=== PATIENT | male | born 1985 | race Caucasian/White ===

== ENCOUNTER → 2022-08-03 | Outpatient (CLI) | payer OTHER ==
[2022-08-03 18:43] LABS: Hematocrit 44.4 % (37.0-53.0); Hemoglobin 15.7 g/dL (13.5-17.5); Mean Corpuscular HGB 28.8 pg (26.0-34.0); Mean Corpuscular HGB Conc 35.4 g/dL (31.5-36.5); Mean Corpuscular Volume 82 fL (80-100); Mean Platelet Volume 10.7 fL (9.1-12.4); Platelet Count 325 K/mm3 (150-400); RDW Coefficient Variation 12.1 % (11.7-14.2); RDW Standard Deviation 35.9 fL (35.1-46.3); Red Blood Cell Count 5.45 M/mm3 (4.30-5.90)
[2022-08-03 21:03] LABS: Alanine Aminotransfer (ALT/SGP 47 U/L (12-78); Alk Phos 81 U/L (50-136); Anion Gap 5 mmol/L (6-16); Aspartate Aminotrans (AST/SGOT 19 U/L (12-37); Bilirubin, Total 0.6 mg/dL (0.1-1.0); Blood Urea Nitrogen 13 mg/dL (8-24); Bun/Creatinine Ratio 13.5 (12.0-20.0); CHOL/HDL RATIO 6.2; CO2, Blood 27 mmol/L (21-32); Calcium, Blood 9.1 mg/dL (8.5-10.1); Chloride, Blood 104 mmol/L (98-108); Cholesterol 204 mg/dL (50-200); Creatinine, Blood 0.97 mg/dL (0.60-1.20); Glomerular Filtration Rate 103 (60-); Glucose, Blood 190 mg/dL (70-99); HDL Cholesterol 33 mg/dL (>39); LDL/HDL RATIO Unable to Calculate; Low Density Lipoprotein Chol Unable to Calculate mg/dL (0-110); Potassium, Blood 3.9 mmol/L (3.5-5.5); Sodium, Blood 136 mmol/L (136-145); Triglycerides 532 mg/dL (30-140); Very Low Density Lipoprot Chol Unable to Calculate mg/dL (6-28)
== END | disposition home or self-care (01) ==
LOC: LAB 16:00 → LAB SHORT 16:00
PROVIDERS: Student in an Organized Health Care Education/Training Program
DX: E78.2 Mixed hyperlipidemia (principal)
CPT/HCPCS: 80053; 80061; 84443; 85027

== ENCOUNTER 2023-06-20 09:21 | Emergency (ER) | payer OTHER ==
[~2023-06-20] VITALS: Ht 175.3 cm; Wt 102.1 kg
[2023-06-20 10:45] LABS: BASOPHILS ABSOLUTE AUTO 0.06 K/mm3 (0.00-0.23); BASOPHILS PERCENT AUTO 1 % (0-2); EOSINOPHILS ABSOLUTE AUTO 0.17 K/mm3 (0.00-0.68); EOSINOPHILS PERCENT AUTO 2 % (0-6); Hemoglobin 15.4 g/dL (13.5-17.5); IMMATURE GRAN ABSOLUTE AUTO 0.02 K/mm3 (0.00-0.10); IMMATURE GRAN PERCENT AUTO 0 % (0-1); LYMPHOCYTES ABSOLUTE AUTO 2.23 K/mm3 (0.84-5.20); LYMPHOCYTES PERCENT AUTO 26 % (21-46); MONOCYTES ABSOLUTE AUTO 0.43 K/mm3 (0.16-1.47); MONOCYTES PERCENT AUTO 5 % (4-13); Mean Corpuscular HGB 28.5 pg (26.0-34.0); Mean Corpuscular HGB Conc 34.2 g/dL (31.5-36.5); Mean Corpuscular Volume 83 fL (80-100); Mean Platelet Volume 10.3 fL (9.1-12.4); NEUTROPHILS PERCENT AUTO 67 % (41-73); Platelet Count 254 K/mm3 (150-400); RDW Coefficient Variation 12.7 % (11.7-14.2); RDW Standard Deviation 38.3 fL (35.1-46.3); Red Blood Cell Count 5.41 M/mm3 (4.30-5.90); White Blood Cell Count 8.71 K/mm3 (4.00-11.30)
[2023-06-20] MEDS ORDERED: STEGLATRO5 MG (10:45)
[2023-06-20] MEDS ORDERED: GLIP5 PO (10:45)
[2023-06-20] MEDS ORDERED: VENLAFAXINE HCL50 MG PO (10:45)
[2023-06-20] MEDS ORDERED: TRAZ50 PO (10:46)
[2023-06-20 11:02] LABS: Albumin, Blood 3.9 g/dL (3.4-5.0); Bilirubin, Total 0.4 mg/dL (0.1-1.0); Bun/Creatinine Ratio 15.8 (12.0-20.0); Calcium, Blood 8.8 mg/dL (8.5-10.1); Creatinine, Blood 1.01 mg/dL (0.60-1.20); Globulin, Blood 3.9 g/dL (2.2-4.0); Potassium, Blood 3.8 mmol/L (3.5-5.5); Total Protein, Blood 7.8 g/dL (6.4-8.2)
[2023-06-20 12:42] VITALS: BP 105/72
== END 2023-06-20 12:51 | disposition home or self-care (01) ==
LOC: ER 09:21
PROVIDERS: Physician Assistant
DX: F44.6 Conversion disorder with sensory symptom or deficit (principal); E11.9 Type 2 diabetes mellitus without complications; Z88.8 Allergy status to other drugs, medicaments and biological substances
CPT/HCPCS: 70450; 80053; 85025; 96374; 99284-25; J1790

== ENCOUNTER 2023-08-03 09:47 | Inpatient (IN) | payer OTHER ==
[~2023-08-03] VITALS: Ht 175.3 cm; Wt 99.8 kg
[2023-08-03] VITALS (11 sets, daily range): BP systolic 123–156; BP diastolic 80–95
[~2023-08-03 09:47] MED LIST: GLIP5 PO; STEGLATRO5 MG PO; TRAZ50 PO; Venlafaxine HC225 MG PO
[2023-08-03] MEDS ORDERED: Morphine Sulfate 4 MG/1 ML Injection IV ONE ×2 (10:10→11:00)
[2023-08-03] MEDS ORDERED: Ondansetron HCl 2 MG / ML 2ML Vial IV ONE (10:10)
[2023-08-03 10:13] LABS: BASOPHILS ABSOLUTE AUTO 0.06 K/mm3 (0.00-0.23); BASOPHILS PERCENT AUTO 0 % (0-2); EOSINOPHILS PERCENT AUTO 0 % (0-6); Hematocrit 43.8 % (37.0-53.0); Hemoglobin 15.2 g/dL (13.5-17.5); IMMATURE GRAN ABSOLUTE AUTO 0.13 K/mm3 (0.00-0.10); IMMATURE GRAN PERCENT AUTO 1 % (0-1); LYMPHOCYTES ABSOLUTE AUTO 1.27 K/mm3 (0.84-5.20); LYMPHOCYTES PERCENT AUTO 6 % (21-46); MONOCYTES ABSOLUTE AUTO 1.44 K/mm3 (0.16-1.47); MONOCYTES PERCENT AUTO 7 % (4-13); Mean Corpuscular HGB 28.3 pg (26.0-34.0); Mean Corpuscular HGB Conc 34.7 g/dL (31.5-36.5); Mean Corpuscular Volume 81 fL (80-100); Mean Platelet Volume 10.1 fL (9.1-12.4); NEUTROPHILS ABSOLUTE AUTO 17.86 K/mm3 (1.96-9.15); NEUTROPHILS PERCENT AUTO 86 % (41-73); Platelet Count 287 K/mm3 (150-400); RDW Coefficient Variation 12.7 % (11.7-14.2); RDW Standard Deviation 37.8 fL (35.1-46.3); Red Blood Cell Count 5.38 M/mm3 (4.30-5.90); White Blood Cell Count 20.76 K/mm3 (4.00-11.30)
[2023-08-03] MEDS ORDERED: NS 1,000 ML IV SCH ×2 (10:30→14:00)
[2023-08-03 10:38] LABS: Albumin, Blood 3.2 g/dL (3.4-5.0); Albumin/Globulin Ratio 0.6 (0.8-1.8); Bilirubin, Total 1.3 mg/dL (0.1-1.0); Bun/Creatinine Ratio 7.3 (12.0-20.0); Calcium, Blood 9.3 mg/dL (8.5-10.1); Creatinine, Blood 0.96 mg/dL (0.60-1.20); Globulin, Blood 5.2 g/dL (2.2-4.0); Potassium, Blood 4.1 mmol/L (3.5-5.5); Total Protein, Blood 8.4 g/dL (6.4-8.2)
[2023-08-03 10:58] LABS: Source, Urine Clean Catch
[2023-08-03 11:28] LABS: Appearance, Urine Clear (Clear); Bilirubin, Urine Neg (Neg); Blood, Urine 1+ (Neg); Color, Urine Yellow (P-Yellow); Glucose Qualitative, Urine 2+ (Neg); Ketones, Urine 2+ (Neg); Leukocyte Esterase, Urine Neg (Neg); Nitrite, Urine Neg (Neg); Protein, Urine 2+ (Neg); Specific Gravity, Urine 1.015 (1.003-1.022); Urobilinogen, Urine NORM (Normal)
[2023-08-03 11:46] LABS: Bacteria Rare /hpf; Squamous Epithelial Cells Not Seen /hpf (Few); White Blood Cells, Urine Not Seen /hpf (0-5)
[2023-08-03] MEDS ORDERED: Piperacillin/Tazobactam Sod 3.375 GM in NS 50 ML IV ONE (12:35)
[2023-08-03] MEDS ORDERED: Acetaminophen 325 MG TABLET PO PRN (13:55)
[2023-08-03] MEDS ORDERED: FLU VACC QS2023-24(6MOS UP)/PF 60 MCG/0.5 ML SYRINGE IM PRN (13:55)
[2023-08-03] MEDS ORDERED: FentaNYL Citrate 50 MCG/ML 2 ML Injection IV PRN ×3 (14:00→18:30)
[2023-08-03] MEDS ORDERED: Ondansetron HCl 2 MG / ML 2ML Vial IV PRN ×2 (14:00→18:30)
[2023-08-03] MEDS ORDERED: Rocuronium Bromide 10 MG/ML 5ML Injection IV ONE ×5 (14:50→20:24)
[2023-08-03] MEDS ORDERED: FentaNYL Citrate 50 MCG/ML 2 ML Injection ONE ×4 (14:50→20:27)
[2023-08-03] MEDS ORDERED: propofoL 20 ML IV ONE (14:50)
[2023-08-03] MEDS ORDERED: Lactated Ringer's 1,000 ML IV SCH (15:30)
--- NOTE | 2023-08-03 16:33 | NUR ---
PT TRANSFERED FROM ER TO [facility]. Lungs clear T/O to Auscultation. Surgical site prepped with 2% Chlorhexidine cloth wipe. History, Chart, Medications and Allergies reviewed before start of procedure.
[2023-08-03] MEDS ORDERED: Bupivacaine 0.5% HCl 5 MG/ML 30MLVIAL ONE (16:42)
[2023-08-03] MEDS ORDERED: DIVA250EC PO (16:49)
--- NOTE | 2023-08-03 17:02 | NUR ---
History, Chart, Medications and Allergies reviewed before start of procedure. Pre-Op teaching done. Pt verbalizes understanding. Patient confirms NPO status and agrees with scheduled surgery. Surgical site prepped with 2% Chlorhexidine cloth wipe. Lungs clear T/O to Auscultation.
[2023-08-03] MEDS ORDERED: Midazolam HCl 1MG / ML 2ML Vial IV ONE (17:05)
[2023-08-03] MEDS ORDERED: Midazolam HCl 1MG / ML 2ML Vial ONE (17:08)
--- NOTE | 2023-08-03 17:11 | NUR ---
DR. ULRICH AT BEDSIDE TO CONSULT WITH PATIENT, PARENTS AT BEDSIDE.
[2023-08-03] MEDS ORDERED: Phenylephrine HCl 100 MCG/ML-NS 10MLSYR (1MG/10ML) ONE (17:42)
[2023-08-03] MEDS ORDERED: Ondansetron HCl 2 MG / ML 2ML Vial ONE (17:49)
[2023-08-03] MEDS ORDERED: Dexamethasone Sod Phos 10 MG/ML 1ML VIAL ONE (17:49)
[2023-08-03] MEDS ORDERED: Insulin Human Lispro 100 Units/ML 3ML Syringe SC SCH (18:00)
[2023-08-03] MEDS ORDERED: Metoclopramide HCl 5MG / ML 2ML Vial IV PRN (18:30)
[2023-08-03] MEDS ORDERED: HYDROmorphone HCl/Pf 1MG SYR IV PRN (18:30)
[2023-08-03] MEDS ORDERED: Indocyanine Green 25 MG Vial ONE (19:14)
[2023-08-03] MEDS ORDERED: Labetalol HCL 5 MG/ML 4ML Injection (Single Dose) ONE (19:33)
[2023-08-03] MEDS ORDERED: Piperacillin/Tazobactam Sod 3.375 GM in NS 50 ML IV SCH (20:00)
[2023-08-03] MEDS ORDERED: Sugammadex Sodium 200 MG/2ML SDV (100 MG/ML) ONE (21:14)
--- NOTE | 2023-08-03 23:45 | NUR ---
ARRIVAL TO UNIT PT ARRIVED TO UNIT FROM PACU ON PT'S BED. PT DROWSY BUT ARROUSABLE AND ABLE TO ANSWER SIMPLE QUESTIONS. X4 LAP SITES WITH GAUZE AND TEGADERM AND SMALL INCISION WITH DIOMEDES WERE C/D/I. REDDY WAS PLACED IN SURGERY, DRAINING TO GRAVITY AND HAS ERVIN COLORED URINE. PT ENDORSES PAIN TO ABD, MEDICATED PER EMAER. PT ON 3L NC, SATTING ABOVE 92%. RR EVEN AND UNLABORED, NO SIGNS OF DISTRESS, NO INC WOB. DENIES ANY N/T TO EXT'S. PARENTS AT BEDSIDE TO REASSURE PT. PT RESTING COMFORTABLY AT THIS TIME. PT EDUCATED ON HOW TO USE CALL LIGHT. NO OTHER NEEDS AT THIS TIME. CALL LIGHT WITHIN REACH
[2023-08-04] VITALS (7 sets, daily range): BP systolic 121–135; BP diastolic 71–86
--- NOTE | 2023-08-04 02:08 | NUR ---
UPDATE PT STILL OFF OF THE AIRVO. PT SATTING ABVOE 90% ON THE RA. NO SIGNS OF INC WOB. RR IN THE LOW 40'S. PT IS SLEEPING SOUNDLY. STILL BBG SX Q2H WITH RT. PT ABLE TO TAKE IN SOME PO FORMULA, NO EPISODES OF SPIT UP. PRODUCING WET DIAPERS. DR. TRUONG MADE AWARE OF HOLIDAY. MOM AT BEDSIDE, LOVING AND ATTENTIVE. NO OTHER CONCERNS AT THIS TIME. CALL LIGHT WITHIN REACH
--- NOTE | 2023-08-04 05:58 | NUR ---
SHIFT SUMMARY POD 1 LAP SIGMOID COLECTOMY W/ BENEDICTO SINCE ARRIVAL TO UNIT PT HAS BEEN SLEEPING. PAIN HAS BEEN MANAGED PER EMAR. PT STILL ON 3L NC SATTING ABOVE 90%. X4 LAP SITES, DIOMEDES DRESSING TO RLQ ALL C/D/I. NO OTHER CONCERNS AT THIS TIME. CALL LIGHT WITHIN REACH
[2023-08-04 07:30] LABS: Bun/Creatinine Ratio 12.2 (12.0-20.0); Calcium, Blood 8.2 mg/dL (8.5-10.1); Creatinine, Blood 0.9 mg/dL (0.60-1.20); Potassium, Blood 4.2 mmol/L (3.5-5.5)
[2023-08-04] MEDS ORDERED: Enoxaparin 40 MG/0.4 ML SYR SC SCH (09:00)
[2023-08-04 09:26] LABS: BASOPHILS ABSOLUTE AUTO 0.03 K/mm3 (0.00-0.23); BASOPHILS PERCENT AUTO 0 % (0-2); EOSINOPHILS PERCENT AUTO 0 % (0-6); Hematocrit 39.7 % (37.0-53.0); Hemoglobin 13.3 g/dL (13.5-17.5); IMMATURE GRAN ABSOLUTE AUTO 0.09 K/mm3 (0.00-0.10); IMMATURE GRAN PERCENT AUTO 1 % (0-1); LYMPHOCYTES ABSOLUTE AUTO 0.79 K/mm3 (0.84-5.20); LYMPHOCYTES PERCENT AUTO 5 % (21-46); MONOCYTES ABSOLUTE AUTO 0.98 K/mm3 (0.16-1.47); MONOCYTES PERCENT AUTO 7 % (4-13); Mean Corpuscular HGB 27.9 pg (26.0-34.0); Mean Corpuscular HGB Conc 33.5 g/dL (31.5-36.5); Mean Corpuscular Volume 83 fL (80-100); Mean Platelet Volume 10.3 fL (9.1-12.4); NEUTROPHILS PERCENT AUTO 88 % (41-73); Platelet Count 227 K/mm3 (150-400); RDW Coefficient Variation 12.6 % (11.7-14.2); RDW Standard Deviation 38.2 fL (35.1-46.3); Red Blood Cell Count 4.76 M/mm3 (4.30-5.90); White Blood Cell Count 15.09 K/mm3 (4.00-11.30)
[2023-08-04] MEDS ORDERED: HYDROmorphone HCl/Pf 1MG SYR IV ONE (11:40)
[2023-08-04] MEDS ORDERED: LORazepam 2 MG/ML 1ML Injection IV PRN (11:45)
--- NOTE | 2023-08-04 18:41 | NUR ---
SHIFT SUMMARY POD1 ROBOTIC LAP SIGMOID COLLECTOMY. LAP SITES X4 WITH GAUZE AND TEGADERM. DIOMEDES DRESSING TO RLQ SMALL TRANSVERSE INCISION. REDDY IN PLACE DRAINING DARK URINE. STAT LOCK IN PLACE. NG TUBE PLACED TODAY WITH XRAY COMFIRMATION. DRNG GREEN OUTPUT. IVF RUNNING 100/HR. PATIENT IS GETTING FENT. Q2 FOR 9/10 PAIN. PATIENT IS AOX4, HAS SOME FORGETFULNESS AND HX OF TBI. CALLS APPROPRIATELY CALL LIGHT IN REACH.
[2023-08-05 02:27] LABS: Hematocrit 36.2 % (37.0-53.0); Hemoglobin 12.2 g/dL (13.5-17.5); Mean Corpuscular HGB 28.4 pg (26.0-34.0); Mean Corpuscular HGB Conc 33.7 g/dL (31.5-36.5); Mean Corpuscular Volume 84 fL (80-100); Mean Platelet Volume 9.9 fL (9.1-12.4); Platelet Count 203 K/mm3 (150-400); RDW Coefficient Variation 12.8 % (11.7-14.2); RDW Standard Deviation 39.1 fL (35.1-46.3); White Blood Cell Count 12.08 K/mm3 (4.00-11.30)
[2023-08-05 02:33] VITALS: BP 122/70
[2023-08-05 02:44] LABS: Bun/Creatinine Ratio 14.9 (12.0-20.0); Calcium, Blood 7.9 mg/dL (8.5-10.1); Creatinine, Blood 0.87 mg/dL (0.60-1.20); Potassium, Blood 3.8 mmol/L (3.5-5.5)
[2023-08-05] MEDS ORDERED: NS 1,000 ML IV SCH (03:45)
--- NOTE | 2023-08-05 03:47 | NUR ---
PT WITH RUST-RED DRAINAGE AND MULTIPLE AIR BUBBLES RETURNING PER NG INTERMITTENT WITH PALE GREEN COLOR.NG PLACEMENT WAS CONFIRMED PER XRAY AND HAS BEEN SECURE THIS SHIFT WITH NO DISPLACEMENT.PT HAS NOT PASSED ANY FLATUS YET, AND DENIES NAUSEA.PT STATES PAIN IS NOT WORSE THAN DURING DAY, BUT HAS AT TIMES REQUESTED PAIN MEDS AT 1 HOUR INTERVAL BEFORE ALLOWED TIME.ABD LARGELY DISTENDED AND TIGHT.URINE VIA REDDY DK VITALE AT BEGINNING OF SHIFT AND BECOMING MENTAL HEALTH PROGRAM MANAGER AT PRESENT.IV FLUIDS WERE ONLY ORDERED X 2 BAGS AND BOTH BAGS WERE COMPLETE WITH NO FURTHER FLUIDS ORDERED.I HAD AM LABS DRAWN EARLY AND CALLED DR GRAHAM TO ASK FOR FLUIDS AND DISCUSSED ASSESSMENT, LABS AND VS.RECEIVED ORDER FOR NS @ 75 ML/HR.
[2023-08-05 07:16] VITALS: BP 119/82
--- NOTE | 2023-08-05 08:09 | NUR ---
SUMMARY PT COUGHED UP THICK GREEN MUCUS THIS AM. ENC CONT CDB AND IS
[2023-08-05 12:17] VITALS: BP 113/88
--- NOTE | 2023-08-05 13:59 | NUR ---
DR. FRANCOIS ROUNDED ON PT AT APPROXIMATELY 0724 AND 1315. DISCUSSED PT'S ELEVATED PAIN LEVEL AND CONTINUED NEED FOR FENTANYL Q2 HOURS. ABD REMAINS DISTENDED. DR. FRANCOIS DENIED NEED FOR CT SCAN AT THIS TIME. PER DR. FRANCOIS NOTIFY IF THERE ARE ANY CHANGES TO PT CONDITION, CHANGE IN VS ESPECIALLY RETURN OF FEVER. PLAN TO INCREASE VS MONITORING TO Q4 THIS SHIFT PER CLINICAL JUDGEMENT.
--- NOTE | 2023-08-05 14:05 | NUR ---
DISCUSSED PAIN MANAGMENT WITH DR. FRANCOIS. 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 ULRICH. DR. FRANCOIS SPOKE WITH ANESTHESIA AND HAS REQUESTED ANESTHESIA SEE HIM FOR POSSIBLE ADDITIONAL PAIN MANAGEMENT. AWAITING ANESTHESIA ROUNDING AT THIS TIME.
[2023-08-05 14:58] VITALS: BP 119/76
[2023-08-05] MEDS ORDERED: Pantoprazole Sodium 40 MG Injection IV SCH (16:30)
[2023-08-05 19:12] VITALS: BP 112/71
--- NOTE | 2023-08-05 20:00 | NUR ---
SHIFT SUMMARY PT IS POD#[address] FRANCOIS. PT IS HAVING SMALL BM'S AND PASSING FLATUS. NG TUBE REMAINS IN PLACE. PT'S ABD REMAINS DISTENDED AND PAIN MANAGEMENT HAS BEEN A CHALLENGE. PT IS GETTING FENTANYL EVERY 2 HOURS. PT IS A 1 ASSIST. FAMILY PRESENT FOR SUPPORT. REPORT GIVEN TO SHERRY MORALES.
[2023-08-06 00:04] VITALS: BP 121/79
[2023-08-06] MEDS ORDERED: NS 1,000 ML IV SCH (02:05)
[2023-08-06 04:31] VITALS: BP 116/79
[2023-08-06 05:35] LABS: BASOPHILS ABSOLUTE AUTO 0.03 K/mm3 (0.00-0.23); BASOPHILS PERCENT AUTO 0 % (0-2); EOSINOPHILS ABSOLUTE AUTO 0.11 K/mm3 (0.00-0.68); EOSINOPHILS PERCENT AUTO 1 % (0-6); Hematocrit 37.4 % (37.0-53.0); Hemoglobin 12.5 g/dL (13.5-17.5); IMMATURE GRAN ABSOLUTE AUTO 0.09 K/mm3 (0.00-0.10); IMMATURE GRAN PERCENT AUTO 1 % (0-1); LYMPHOCYTES ABSOLUTE AUTO 1.11 K/mm3 (0.84-5.20); LYMPHOCYTES PERCENT AUTO 10 % (21-46); MONOCYTES ABSOLUTE AUTO 1.09 K/mm3 (0.16-1.47); MONOCYTES PERCENT AUTO 10 % (4-13); Mean Corpuscular HGB 28.5 pg (26.0-34.0); Mean Corpuscular HGB Conc 33.4 g/dL (31.5-36.5); Mean Corpuscular Volume 85 fL (80-100); Mean Platelet Volume 10.1 fL (9.1-12.4); NEUTROPHILS ABSOLUTE AUTO 8.96 K/mm3 (1.96-9.15); NEUTROPHILS PERCENT AUTO 79 % (41-73); Platelet Count 278 K/mm3 (150-400); RDW Coefficient Variation 12.7 % (11.7-14.2); RDW Standard Deviation 39.1 fL (35.1-46.3); Red Blood Cell Count 4.39 M/mm3 (4.30-5.90); White Blood Cell Count 11.39 K/mm3 (4.00-11.30)
[2023-08-06 05:54] LABS: Albumin, Blood 2.2 g/dL (3.4-5.0); Albumin/Globulin Ratio 0.5 (0.8-1.8); Bilirubin, Total 0.9 mg/dL (0.1-1.0); Bun/Creatinine Ratio 16.3 (12.0-20.0); Calcium, Blood 8.2 mg/dL (8.5-10.1); Creatinine, Blood 0.8 mg/dL (0.60-1.20); Globulin, Blood 4.6 g/dL (2.2-4.0); Potassium, Blood 3.6 mmol/L (3.5-5.5); Total Protein, Blood 6.8 g/dL (6.4-8.2)
[2023-08-06 07:41] VITALS: BP 113/82
[2023-08-06] MEDS ORDERED: OxyCODONE HCL 5 MG TAB PO PRN (08:30)
[2023-08-06] MEDS ORDERED: Gabapentin 300 MG Cap PO SCH (09:00)
--- NOTE | 2023-08-06 09:12 | NUR ---
SUMMARY PT CONT IWTH IV PAIN MEDS. ALTHOUGH HAVE SPACED THEM OUT SOME.PT HAS BEEN PASSING LIQ STOOL AND FLATUS. PT REPORTED WHEN HE WAS WIPING HIS NOW TONIGHT HE MAY HAVE CAUGHT TAPE SECUREMENT DEVICE APPEARED LOOSE. THERE WAS STILL SOME TAPE PIECING ON TUBE,SO I REPLACED SECUREMENT DEVICE AT THAT LOCATION .
--- NOTE | 2023-08-06 10:49 | NUR ---
NG TUBE REMOVED AT 0905. PT TOLERATED WELL.
--- NOTE | 2023-08-06 10:52 | NUR ---
DR. FRANCOIS ROUNDED THIS AM AT APPROXIMATELY 1030
[2023-08-06] MEDS ORDERED: Acetaminophen 500 MG Tab PO SCH (12:00)
[2023-08-06] MEDS ORDERED: TraZODone HCl 50 MG Tab PO PRN (12:35)
[2023-08-06] MEDS ORDERED: Venlafaxine HCl 75 MG CapCR PO SCH (13:00)
[2023-08-06] MEDS ORDERED: Divalproex Sodium 250 MG TABLET.DR PO SCH (13:00)
[2023-08-06] MEDS ORDERED: NS 250 ML IV PRN (13:30)
[2023-08-06 16:20] VITALS: BP 109/73
[2023-08-06 19:48] VITALS: BP 107/69
--- NOTE | 2023-08-06 20:11 | NUR ---
SHIFT SUMMARY PT IS POD#3 FROM SIGMOID COLECTOMY. NG TUBE IS OUT AND PT IS TOLERATING CLEAR LIQUIDS. PAIN MANAGED WITH TYLENOL AND OXYCODONE, PT HAD FENTANYL FOR BREAKTHROUGH PAIN. PT IS A 1 ASSIST WITH GAIT BELT AND WALKER. PT HAS MOBILIZED IN HIS ROOM TODAY AND BEEN OOB TO THE CHAIR X2. PT CONTINUES TO HAVE BMS AND PASS FLATUS. FAMILY HAS VISITED FOR SUPPORT. BEDSIDE REPORT GIVEN TO SHERRY MORALES.
[2023-08-06] MEDS ORDERED: Insulin Human Lispro 100 Units/ML 3ML Syringe SC SCH (21:00)
[2023-08-07 02:36] VITALS: BP 109/72
[2023-08-07 06:11] LABS: Hematocrit 37.6 % (37.0-53.0); Hemoglobin 12.2 g/dL (13.5-17.5); Mean Corpuscular HGB 27.9 pg (26.0-34.0); Mean Corpuscular HGB Conc 32.4 g/dL (31.5-36.5); Mean Corpuscular Volume 86 fL (80-100); Platelet Count 298 K/mm3 (150-400); RDW Coefficient Variation 12.7 % (11.7-14.2); RDW Standard Deviation 39.9 fL (35.1-46.3); Red Blood Cell Count 4.37 M/mm3 (4.30-5.90); White Blood Cell Count 9.04 K/mm3 (4.00-11.30)
[2023-08-07 07:19] VITALS: BP 103/68
--- NOTE | 2023-08-07 07:55 | NUR ---
SUMMARY PT SITTING UP IN CHAIR. PT MED WITH OXY ONLY X 2 THIS SHIFT. CONT FEELING BETTER.
[2023-08-07] MEDS ORDERED: NS 50 ML IV ONE (13:16)
[2023-08-07 14:08] VITALS: BP 108/68
--- NOTE | 2023-08-07 18:06 | NUR ---
SHIFT SUMMARY POD 4 SIGMOID COLECTOMY. PT CONTINUES TO TOLERATE DIET WELL, NO NAUSEA. PAIN CONTROLLED PER EMAR. PASSING FLATUS AND SMALL STOOL. PT AMBULATING IN ROOM. UP IN CHAIR FOR MAJORITY OF DAY. LAP SITE DRESSINGS CHANGED THIS MORNING. NEO AND SITES APPEAR CDI. NO REDNESS AROUND INCISION SITES.
[2023-08-07 19:41] VITALS: BP 108/64
[2023-08-08 04:24] VITALS: BP 101/70
--- NOTE | 2023-08-08 05:14 | NUR ---
SHIFT SUMMARY PT SLEPT WELL T/O NOC. NO ACUTE CHANGES. VSS. TYLENOL + ROXICODONE FOR PAIN MANAGEMENT. LAP SITES + DIOMEDES DRESSING REMAINS UNCHANGED. PASSING FLATUS AND HAD X1 BM. INDEP WITH FWW TO RESTROOM. IV ABX PER ORDERS. USES CALL LIGHT APPROPRIATELY.
[2023-08-08 07:28] VITALS: BP 111/71
[2023-08-08] MEDS ORDERED: ACET500 PO (12:56)
[2023-08-08] MEDS ORDERED: OXYC5 PO (12:57)
[2023-08-08] MEDS ORDERED: GABA300 PO (12:57)
[2023-08-08] MEDS ORDERED: PANT40 PO (12:57)
[2023-08-08] MEDS ORDERED: CIPR500 PO (12:58)
[2023-08-08] MEDS ORDERED: METR500 PO (12:58)
[2023-08-08] MEDS ORDERED: AMOCLA875 PO (12:59)
--- NOTE | 2023-08-08 17:36 | NUR ---
DISCHARGE POD 6 SIGMOID COLECTOMY PATIENT PAIN WELL CONTROLLED DURING SHIFT. TOLERATING DIET WELL WITH NO NAUSEA. AMBULATING WELL. DRESSING TO LOWER ABDOMEN CHANGED PRIOR TO DISCHARGE. ALL QUESTIONS GONE OVER WITH PATIENT AND MOTHER.
== END 2023-08-08 14:16 | disposition home or self-care (01) | DRG 853 ==
LOC: ER 09:47 → SURS 13:54
PROVIDERS: Emergency Medicine; Surgery; ADMIT Internal Medicine
PROC: 0DN84ZZ Release Small Intestine, Percutaneous Endoscopic Approach (ICD-10-PCS; 2023-08-03)
PROC: 0W9G4ZZ Drainage of Peritoneal Cavity, Percutaneous Endoscopic Approach (ICD-10-PCS; 2023-08-03)
PROC: 8E0W4CZ Robotic Assisted Procedure of Trunk Region, Percutaneous Endoscopic Approach (ICD-10-PCS; 2023-08-03)
PROC: 3E03329 Introduction of Other Anti-infective into Peripheral Vein, Percutaneous Approach (ICD-10-PCS; 2023-08-03)
PROC: 0DTN4ZZ Resection of Sigmoid Colon, Percutaneous Endoscopic Approach (ICD-10-PCS; principal; 2023-08-03 17:00)
PROC: 0DNE4ZZ Release Large Intestine, Percutaneous Endoscopic Approach (ICD-10-PCS; 2023-08-03 17:00)
DX: A41.9 Sepsis, unspecified organism (principal); K65.1 Peritoneal abscess; K57.20 Diverticulitis of large intestine with perforation and abscess without bleeding; I96 Gangrene, not elsewhere classified; F43.10 Post-traumatic stress disorder, unspecified; E11.9 Type 2 diabetes mellitus without complications; R29.818 Other symptoms and signs involving the nervous system; F32.9 Major depressive disorder, single episode, unspecified; K66.0 Peritoneal adhesions (postprocedural) (postinfection); Z88.8 Allergy status to other drugs, medicaments and biological substances; Z79.84 Long term (current) use of oral hypoglycemic drugs; Z87.820 Personal history of traumatic brain injury
CPT/HCPCS: 36415; 51798; 71045; 74177; 80048; 80053; 81001; 82947; 83605; 83690; 85025; 85027; 86141; 86850; 86900; 86901; 87040; 88307; 93005; 93010; 94762; 96361; 96365-59; 96375; 96376; 99285-25; A9270; C9113; J1100; J1170; J1650; J2060; J2250; J2270; J2371; J2405; J2543; J2704; J3010; J7030; J7050; J7120; Q9967

== ENCOUNTER 2023-11-06 10:50 | Day surgery (SDC) | payer OTHER ==
[~2023-11-06] VITALS: Ht 175.3 cm; Wt 94.7 kg
[~2023-11-06 10:50] MED LIST changes: +ACET500 PO; +AMOCLA875 PO; +CIPR500 PO; +DIVA250EC PO; +GABA300 PO; +Lactated Ringer's 1,000 ML IV ONE; +METR500 PO; +OXYC5 PO; +PANT40 PO
[2023-11-06] MEDS ORDERED: Lactated Ringer's 1,000 ML IV ONE (11:52)
[2023-11-06] MEDS ORDERED: propofoL 20 ML IV ONE (12:03)
[2023-11-06] MEDS ORDERED: Phenylephrine HCl 10mg/ml 1 ml Vial ONE (12:05)
[2023-11-06] MEDS ORDERED: NS 100 ML IV ONE (12:06)
[2023-11-06] MEDS ORDERED: SuccINYLCHOLINE Chloride 100 MG/5 ML 5MLSYR ONE (12:06)
[2023-11-06 13:04] VITALS: BP 103/72
== END 2023-11-06 13:03 | disposition home or self-care (01) ==
LOC: ORSCSDS 10:50
PROVIDERS: Surgery
PROC: 0DJD8ZZ Inspection of Lower Intestinal Tract, Via Natural or Artificial Opening Endoscopic (ICD-10-PCS; principal; 2023-11-06 12:00)
DX: Z90.49 Acquired absence of other specified parts of digestive tract (principal); K57.30 Diverticulosis of large intestine without perforation or abscess without bleeding; E11.9 Type 2 diabetes mellitus without complications; Z68.30 Body mass index [BMI] 30.0-30.9, adult; Z79.899 Other long term (current) drug therapy
CPT/HCPCS: 82947; J0330; J2371; J2704; J7120

== ENCOUNTER → 2025-04-01 | Outpatient (CLI) | payer MEDICARE, OTHER ==
[~2025-04-01] MED LIST changes: -Lactated Ringer's 1,000 ML IV ONE
[2025-04-01 19:37] LABS: CHOL/HDL RATIO 4.5; Cholesterol 168 mg/dL (50-200); HDL Cholesterol 37 mg/dL (>39); LDL/HDL RATIO 2.0; Low Density Lipoprotein Chol 76 mg/dL (0-110); Triglycerides 276 mg/dL (30-160); Very Low Density Lipoprot Chol 55 mg/dL (6-32)
[2025-04-01 21:48] LABS: Creatinine, Urine Random 64.8 mg/dL (27.00-270.00); Microalb/Creat Ratio UR, Rand 11.975 mg/g (0.000-30.000); Microalbumin, Random Urine 7.76 mg/L (0.000-20.000)
== END | disposition home or self-care (01) ==
LOC: LAB SHORT 10:29 → LAB 10:29
PROVIDERS: Student in an Organized Health Care Education/Training Program
DX: E78.2 Mixed hyperlipidemia (principal); E11.9 Type 2 diabetes mellitus without complications; E78.00 Pure hypercholesterolemia, unspecified
CPT/HCPCS: 80061; 82043; 82570